=== PATIENT | female | born 1945 | race Caucasian/White ===

== ENCOUNTER 2016-09-25 14:33 | Outpatient (CLI) | payer MEDICARE, BC ==
[~2016-09-25] VITALS: Ht 172.7 cm; Wt 69.5 kg
[2016-09-25 16:00] VITALS: BP 144/55; PULSE 59; TEMP 97.5
[2016-09-25] MEDS ORDERED: ZOLOFT 100MG100 MG PO (16:20)
[2016-09-25] MEDS ORDERED: PRINIVIL5 MG PO (16:20)
[2016-09-25] MEDS ORDERED: VITAMIN D 1001000 IU PO (16:22)
[2016-09-25] MEDS ORDERED: MASON NATURAL1200 MG PO (16:22)
[2016-09-25] MEDS ORDERED: ZOCOR 20MG20 MG PO (16:24)
== END 2016-09-25 17:01 | disposition home or self-care (01) ==
LOC: EUO 14:33
DX: M81.0 Age-related osteoporosis without current pathological fracture (principal)
CPT/HCPCS: J3489

== ENCOUNTER 2016-10-09 07:55 | Day surgery (SDC) | payer MEDICARE, BC ==
[~2016-10-09] VITALS: Ht 170.2 cm; Wt 67.5 kg
[~2016-10-09 07:55] MED LIST: MASON NATURAL1200 MG PO; PRINIVIL5 MG PO; VITAMIN D 1001000 IU PO; ZOCOR 20MG20 MG PO; ZOLOFT 100MG100 MG PO
[2016-10-09 08:39] VITALS: BP 114/69; PULSE 61; TEMP 97.5
[2016-10-09 09:58] VITALS: BP 123/62; PULSE 64; TEMP 97.6
[2016-10-09 10:15] VITALS: BP 114/50; PULSE 62
[2016-10-09 10:30] VITALS: BP 112/49; PULSE 63
[2016-10-09 11:16] VITALS: BP 96/56; PULSE 62
== END 2016-10-09 10:51 | disposition home or self-care (01) ==
LOC: SDCO 07:55
DX: Z12.11 Encounter for screening for malignant neoplasm of colon (principal); K57.30 Diverticulosis of large intestine without perforation or abscess without bleeding; I10 Essential (primary) hypertension; M85.80 Other specified disorders of bone density and structure, unspecified site
CPT/HCPCS: OP; J7030

== ENCOUNTER → 2018-01-21 | Outpatient (CLI) | payer MEDICARE, BC | LOC: MC.RAD 08:39 | DX: Z12.31 Encounter for screening mammogram for malignant neoplasm of breast (principal) ==

== ENCOUNTER → 2019-03-30 | Outpatient (CLI) | payer MEDICARE, BC | LOC: MC.RAD 13:55 | DX: Z12.31 Encounter for screening mammogram for malignant neoplasm of breast (principal) ==

== ENCOUNTER 2023-08-31 07:31 | Inpatient (IN) | payer MEDICARE, BC ==
[~2023-08-31] VITALS: Ht 165.1 cm; Wt 68.1 kg
[2023-08-31] VITALS (16 sets, daily range): BP systolic 113–165; BP diastolic 54–78; PULSE 60–90; TEMP 97–98.4
[2023-08-31] MEDS ORDERED: Ketorolac 15 MG/ML VIAL IV ONE (08:00)
[2023-08-31] MEDS ORDERED: NS 1,000 ML IV ONE (08:00)
[2023-08-31] MEDS ORDERED: fentaNYL 50 MCG/ML 2 ML VIAL IV ONE (08:00)
[2023-08-31 08:35] LABS: BASO # 0.1 K/mm3 (0.0-0.2); BASO % 0.3 % (0.0-2.0); EOS % 0.2 % (0.0-4.0); GRAN # 15.9 K/mm3 (1.4-6.5); HEMATOCRIT 39.1 % (37.0-47.0); HEMOGLOBIN 12.8 g/dl (12.5-16.0); LYMPH # 0.9 K/mm3 (1.2-3.4); MEAN CELL VOLUME 93 fl (80.0-100.0); MEAN CORPUSCULAR HEMOGLOBIN 31 pg (27-31); MEAN CORPUSCULAR HGB CONC 33 g/dl (33.0-37.0); MEAN PLATELET VOLUME 10.5 fl (7.4-10.4); MONO # 1.1 K/mm3 (0.1-0.6); MONO % 5.9 % (1.7-9.3); PLATELET COUNT 243 K/mm3 (130-400); RED BLOOD COUNT 4.19 M/mm3 (4.10-5.30); REDCELL DISTRIBUTION WIDTH-CV 13.4 % (11.5-14.5)
[2023-08-31 08:56] LABS: ALBUMIN 3.3 g/dL (3.4-4.8); BILIRUBIN,TOTAL 0.7 mg/dL (0.2-1.2); CALCIUM 10.3 mg/dL (8.4-10.2); CREATININE, serum 1.06 mg/dL (0.57-1.11); POTASSIUM 4.1 mEq/L (3.5-4.5); TOTAL PROTEIN 6.9 g/dl (6.2-8.1)
[2023-08-31 08:57] LABS: C-REACTIVE PROTEIN 38.62 mg/dL (0.00-0.50)
[2023-08-31 09:04] LABS: COLLECTION METHOD CLEAN CATCH
[2023-08-31 10:01] LABS: URINE COLOR YELLOW (YELLOW)
[2023-08-31 10:02] LABS: PH 5.5 (5.0-8.5); URINE APPEARANCE Hazy (CLEAR/HAZY); URINE GLUCOSE NEGATIVE (NEGATIVE); URINE PROTEIN(semi-quant) 1+ (NEGATIVE)
[2023-08-31 10:03] LABS: URINE BLOOD TRACE-INTACT (NEGATIVE); URINE KETONE 1+ (NEGATIVE); URINE NITRATE POSITIVE (NEGATIVE); URINE UROBILINOGEN 0.2 E.U/dL (0.2-1.0)
[2023-08-31 10:06] LABS: MUCOUS PRESENT (NOT PRESENT); URINE BACTERIA MANY /hpf (NONE SEEN); URINE RBC 0-2 /hpf (0-2); URINE WBC 0-2 /hpf (0-2)
[2023-08-31] MEDS ORDERED: CIPRO 500MG TA500 MG PO (10:25)
[2023-08-31] MEDS ORDERED: FLAGYL500 MG PO (10:26)
[2023-08-31] MEDS ORDERED: LIPITOR 40MG TA40 MG PO (10:26)
--- NOTE | 2023-08-31 12:00 | NUR ---
PATIENT ARRIVED FROM THE ER AWAKE ALERT AND ORIENTED. BP SLIGHTLY ELEVATED, PATIENT APPEARS STABLE AT THIS TIME. CALL LIGHT WTIHIN REACH. PATIENT AWARE OF NPO STATUS AND SURGERY CONSULT. PATIENTS AT BEDSIDE. PATIENT DENIES ANY NEEDS OR COMPLAINTS AT THIS TIME.
--- NOTE | 2023-08-31 12:42 | NUR ---
Data: Farm Demonstrator visit attempted during Farm Demonstrator rounds. Patient was sleeping. Assessment: None. Patient was sleeping. Plan of Care: Chaplains will remain available as needed/requested while Patient is admitted to this hospital.
[2023-08-31] MEDS ORDERED: Morphine 4 MG/ML VIAL IV PRN (13:00)
[2023-08-31] MEDS ORDERED: NS 1,000 ML IV SCH (13:00)
[2023-08-31] MEDS ORDERED: Ondansetron 4 MG/2 ML VIAL IV PRN ×2 (13:00→14:30)
[2023-08-31] MEDS ORDERED: Meropenem 500 MG in Water For Injection,Sterile 10 ML IV SCH (13:00)
[2023-08-31] MEDS ORDERED: Acetaminophen 500 MG TAB PO PRN (13:00)
--- NOTE | 2023-08-31 13:35 | NUR ---
ANIYA CONSENT FOR SURGERY SIGNED. PARCEL POST DELIVERY AWARE OF ANNIKA MAR CALLED DOWN TO OR. PATIENT DENIES ANY NEEDS OR COMPLAINTS AT THIS TIME. IV ANT GIVEN (SEE EMAR) AND IVF INFUSING PER ORDER.
[2023-08-31] MEDS ORDERED: Meperidine 50 MG/ML 1 ML VIAL IV PRN (14:30)
[2023-08-31] MEDS ORDERED: HYDROmorphone 1 MG/1 ML SYRINGE [PACU/SDC ONLY] IV PRN (14:30)
[2023-08-31] MEDS ORDERED: fentaNYL 50 MCG/ML 1 ML SYRINGE/VIAL [PACU/SDC ONLY] IV PRN (14:30)
[2023-08-31] MEDS ORDERED: hydrALAZINE 20 MG/ML 1 ML VIAL IV PRN (14:30)
[2023-08-31] MEDS ORDERED: BUPivacaine PF 0.5% w EPI (1:200,000) 10 ML VIAL SQ ONE ×2 (14:38)
[2023-08-31] MEDS ORDERED: LR 1,000 ML IV SCH (16:00)
--- NOTE | 2023-08-31 16:50 | NUR ---
PATIENT TAKEN TO SURGERY VIA BED BY PACU NURSE, PATIENTS STAYED WITH PATIENT. PATIENT LEFT THE UNIT AWAKE ALERT AND IN STABLE CONDITION.
[2023-08-31] MEDS ORDERED: Rocuronium 50 MG/5 ML Multi-Dose VIAL ONE (17:45)
[2023-08-31] MEDS ORDERED: Lidocaine PF 2% (20 MG/ML) 5 ML VIAL ONE (17:45)
[2023-08-31] MEDS ORDERED: Ondansetron 4 MG/2 ML VIAL ONE (17:45)
[2023-08-31] MEDS ORDERED: fentaNYL 50 MCG/ML 5 ML VIAL ONE (17:46)
[2023-08-31] MEDS ORDERED: Iohexol 300 - 100 ML VIAL IV ONE (18:01)
[2023-08-31] MEDS ORDERED: NS 100 ML IV.SOLN. IY SCH (18:03)
[2023-08-31] MEDS ORDERED: fentaNYL 50 MCG/ML 2 ML VIAL ONE (19:06)
[2023-08-31] MEDS ORDERED: Metoprolol Tartrate 5 MG/5 ML VIAL IV ONE (19:37)
[2023-08-31 19:51] LABS: HEMATOCRIT 37.3 % (37.0-47.0); HEMOGLOBIN 11.8 g/dl (12.5-16.0); MEAN CELL VOLUME 93 fl (80.0-100.0); MEAN CORPUSCULAR HEMOGLOBIN 29 pg (27-31); MEAN CORPUSCULAR HGB CONC 32 g/dl (33.0-37.0); MEAN PLATELET VOLUME 10.4 fl (7.4-10.4); PLATELET COUNT 233 K/mm3 (130-400); RED BLOOD COUNT 4.01 M/mm3 (4.10-5.30); REDCELL DISTRIBUTION WIDTH-CV 13.5 % (11.5-14.5)
[2023-08-31 20:05] LABS: CALCIUM 9.6 mg/dL (8.4-10.2); CREATININE, serum 0.86 mg/dL (0.57-1.11); MAGNESIUM 1.6 mg/dL (1.6-2.6); POTASSIUM 4.2 mEq/L (3.5-4.5)
--- NOTE | 2023-08-31 20:10 | NUR ---
RECIEVED REPORT FROM PACU NURSE. PT NSR WITH PVC'S. PER PACU NURSE HAD LABS DRAWN THAT WERE ORDERED PER BAUTISTA REESE. ONCE PT ARRIVED TO UNIT SHE WAS SEEN BY PROVIDER AND ACESSED, VS WNL EKG DONE. PAIN RATED 4/10, TOLERATING SIPS OF WATER.
[2023-08-31 20:23] LABS: BAND 1 % (0-10); LYMPHOCYTE 5 % (20.0-51.0); NEUTROPHILS 92 % (42.0-75.2)
[2023-08-31 20:26] LABS: HYPOCHROMIA 2+; PLATELET ESTIMATE NORMAL (NORMAL)
[2023-09-01] VITALS (13 sets, daily range): BP systolic 110–169; BP diastolic 54–74; PULSE 70–90; TEMP 97.7–99.2
--- NOTE | 2023-09-01 03:50 | NUR ---
PT DOING WELL OVERNIGHT, REMAINS ALERT AND ORIENTED X3. PAIN RATED 6-8/10 IN LAPRROSCOPIC SITES. VS WNL HAS BEEN TOLERATING CLEARS AND HAS VOIDED. CALL LIGHT WITHIN REACH.
[2023-09-01 07:04] LABS: BASO % 0.2 % (0.0-2.0); EOS % 0.2 % (0.0-4.0); GRAN # 10.8 K/mm3 (1.4-6.5); GRAN % 88.4 % (42.2-75.2); HEMOGLOBIN 11.1 g/dl (12.5-16.0); LYMPH # 0.8 K/mm3 (1.2-3.4); LYMPH % 6.6 % (20.0-51.0); MEAN CELL VOLUME 93 fl (80.0-100.0); MEAN CORPUSCULAR HEMOGLOBIN 30 pg (27-31); MEAN CORPUSCULAR HGB CONC 32 g/dl (33.0-37.0); MEAN PLATELET VOLUME 10.4 fl (7.4-10.4); MONO # 0.5 K/mm3 (0.1-0.6); MONO % 4.2 % (1.7-9.3); PLATELET COUNT 254 K/mm3 (130-400); RED BLOOD COUNT 3.74 M/mm3 (4.10-5.30); REDCELL DISTRIBUTION WIDTH-CV 13.6 % (11.5-14.5)
[2023-09-01 07:11] LABS: HEMATOCRIT 34.7 % (37.0-47.0)
[2023-09-01 07:24] LABS: CALCIUM 8.9 mg/dL (8.4-10.2); CREATININE, serum 0.84 mg/dL (0.57-1.11); MAGNESIUM 1.6 mg/dL (1.6-2.6); POTASSIUM 4.1 mEq/L (3.5-4.5)
[2023-09-01] MEDS ORDERED: Sertraline 100 MG TAB PO SCH (09:00)
--- NOTE | 2023-09-01 11:02 | NUR ---
SW met with patient to complete intake & discuss discharge planning. Patient shared that she resides in her home with her in [place] ([place]clain [phone] cell. Patient has DPOA on file. Patient's PCP is Dr Rutledge and pharmacy of choice is [facility]. Patient reports no current DMEs and is independent with ADLs. Patient is anticipating to discharge to her home w/spouse at this time.
--- NOTE | 2023-09-01 13:57 | NUR ---
IVF DECREASED TO 75CC/HR PER MD ORDER. SEE EMAR
[2023-09-01] MEDS ORDERED: Mouth Moisturizer Spray 30 ML BOTTLE PO PRN (14:00)
[2023-09-01] MEDS ORDERED: Lisinopril 5 MG TAB PO SCH (16:51)
[2023-09-02] VITALS (14 sets, daily range): BP systolic 111–169; BP diastolic 56–84; PULSE 65–84; TEMP 97.5–98.4
--- NOTE | 2023-09-02 07:30 | NUR ---
PATIENT RESTING UP IN BEDSIDE CHAIR DURING SHIFT REPORT. NO COMPLAINTS OF PAIN OR NAUSEA. IV FLUIDS INFUSING VIA PUMP INTO RIGHT AC IV. VSS ON TELE. ALREADY ROUNDED, SEE NOTES. TOLERATING LOW FIBER DIET. PASSING GAS. NO BM YET. HEAD TO TOE ASSESSMENT WNL. CALL LIGHT IN REACH.
[2023-09-02 08:02] LABS: BASO % 0.3 % (0.0-2.0); EOS # 0.2 K/mm3 (0.0-0.7); EOS % 1.6 % (0.0-4.0); GRAN % 86.1 % (42.2-75.2); HEMOGLOBIN 11.1 g/dl (12.5-16.0); LYMPH # 0.6 K/mm3 (1.2-3.4); LYMPH % 5.5 % (20.0-51.0); MEAN CELL VOLUME 93 fl (80.0-100.0); MEAN CORPUSCULAR HEMOGLOBIN 31 pg (27-31); MEAN CORPUSCULAR HGB CONC 33 g/dl (33.0-37.0); MEAN PLATELET VOLUME 10.6 fl (7.4-10.4); MONO # 0.7 K/mm3 (0.1-0.6); MONO % 5.9 % (1.7-9.3); PLATELET COUNT 208 K/mm3 (130-400); RED BLOOD COUNT 3.63 M/mm3 (4.10-5.30); REDCELL DISTRIBUTION WIDTH-CV 13.8 % (11.5-14.5)
[2023-09-02 08:16] LABS: CALCIUM 8.8 mg/dL (8.4-10.2); CREATININE, serum 0.73 mg/dL (0.57-1.11); POTASSIUM 3.8 mEq/L (3.5-4.5)
[2023-09-02 08:57] LABS: HEMATOCRIT 33.6 % (37.0-47.0)
--- NOTE | 2023-09-02 10:20 | NUR ---
PATIENT'S SON AT DESK REPORTING PATIENT'S JAMAAL DRAIN IS LEAKING ON THE FLOOR WHEN PATIENT WENT TO GET UP OUT OF THE RECLINER. UPON ASSESSING, THE PATIENT GOT THE JAMAAL DRAIN CAUGHT IN THE LEG OF THE BEDSIDE CHAIR WHEN SHE PUT THE FOOT REST DOWN TO GET UP AND THE JAMAAL BULB CAMP OFF. PATIENT CLEANED UP, REAPPLIED JAMAAL BULB AND CHANGED DSG SITE WITH NEW GAUZE & HYPAFIX TAPE. SUTURE TO JAMAAL SITE INTACT. JAMAAL BACK TO BULB COMPRESSION. PROVIDER NOTIFIED, NO NEW ORDERS AT THIS TIME.
--- NOTE | 2023-09-02 14:26 | NUR ---
Outreach Specialist contacted Hospitalist to request PT/OT evaluation.
[2023-09-02] MEDS ORDERED: Polyethylene Glycol 3350 17 GM PDS PO SCH (20:19)
--- NOTE | 2023-09-02 23:46 | NUR ---
PT lying in bed, alert and oriented x4. denies chest pain and shortness of breath. reports unable to have BM since 2020- Dr. Kirkland notfied, new orders placed and initiated. IV to RAC is patent, site CDI. ambulates with steady gait. x2 lap sites with bandaids and JAMAAL drain with gauze dressing, all sites CDI. pt has no further needs, questions, or concerns at this time. call light within reach. will continue to monitor.
[2023-09-03] VITALS (7 sets, daily range): BP systolic 164–175; BP diastolic 58–73; PULSE 68–82; TEMP 97.7–98.5
[2023-09-03] MEDS ORDERED: hydrALAZINE 20 MG/ML 1 ML VIAL IV PRN (05:15)
[2023-09-03 06:34] LABS: BASO % 0.2 % (0.0-2.0); EOS # 0.2 K/mm3 (0.0-0.7); EOS % 1.7 % (0.0-4.0); GRAN # 9.9 K/mm3 (1.4-6.5); GRAN % 86.4 % (42.2-75.2); HEMOGLOBIN 11.2 g/dl (12.5-16.0); LYMPH # 0.6 K/mm3 (1.2-3.4); LYMPH % 5.6 % (20.0-51.0); MEAN CELL VOLUME 89 fl (80.0-100.0); MEAN CORPUSCULAR HEMOGLOBIN 30 pg (27-31); MEAN CORPUSCULAR HGB CONC 34 g/dl (33.0-37.0); MEAN PLATELET VOLUME 10.3 fl (7.4-10.4); MONO # 0.6 K/mm3 (0.1-0.6); MONO % 5.6 % (1.7-9.3); PLATELET COUNT 284 K/mm3 (130-400); RED BLOOD COUNT 3.72 M/mm3 (4.10-5.30); REDCELL DISTRIBUTION WIDTH-CV 13.4 % (11.5-14.5)
[2023-09-03 06:40] LABS: HEMATOCRIT 33.2 % (37.0-47.0)
[2023-09-03 07:04] LABS: CALCIUM 9.1 mg/dL (8.4-10.2); CREATININE, serum 0.66 mg/dL (0.57-1.11); POTASSIUM 3.3 mEq/L (3.5-4.5)
--- NOTE | 2023-09-03 08:20 | NUR ---
patient alert and orientex x4. on room air. sitting in bed getting ready for breakfast. patient reports pain to left lower quadrant when pressed and also with movement does not want medication for it. patient has 2 lap sites C/D/I. and reports a bowel movement last night. refused colace and miralax this morning. Patient has a earl drain to right lower quadrant draining pink drainage no bright red drainage. Patient call light within reach. bed at lowest position.
[2023-09-03] MEDS ORDERED: Lisinopril 10 MG TAB PO SCH (09:00)
[2023-09-03] MEDS ORDERED: PRINIVIL10 MG PO (10:17)
[2023-09-03] MEDS ORDERED: CLEOCIN HCL300 MG PO (10:18)
--- NOTE | 2023-09-03 10:57 | NUR ---
Bleach Boiler Packer reviewed PT/OT notes which recommend home. SW was notified by Hospitalist that patient is going to be discharged today. SW met with patient to present and review IM form. Patient verbalized understanding and provided signature. SW placed form in chart and provided copy to patient. Discharge Plan: Home
--- NOTE | 2023-09-03 13:05 | NUR ---
patient discharge instructions given. Patient JAMAAL drain removed by dr. kimble.- per patient report. Patient discharge concerns were answered. Patient IV removed and telemetry discontinued. Patient provided with low fiber diet educational material added to previous educational material given. patient escorted out of unit by patient health care coach.
== END 2023-09-03 13:10 | disposition home or self-care (01) | DRG 356 ==
LOC: COL.ER 07:31 → MEDICAL 10:43
PROVIDERS: Emergency Medicine; Internal Medicine; Surgery; ADMIT Internal Medicine
PROC: 0W9G40Z Drainage of Peritoneal Cavity with Drainage Device, Percutaneous Endoscopic Approach (ICD-10-PCS; principal; 2023-08-31 18:00)
DX: K57.20 Diverticulitis of large intestine with perforation and abscess without bleeding (principal); K65.1 Peritoneal abscess; J98.11 Atelectasis; F32.A Depression, unspecified; I45.10 Unspecified right bundle-branch block; I10 Essential (primary) hypertension; E78.5 Hyperlipidemia, unspecified; K58.9 Irritable bowel syndrome, unspecified; Z90.89 Acquired absence of other organs; Z90.710 Acquired absence of both cervix and uterus; Z79.899 Other long term (current) drug therapy; Z88.0 Allergy status to penicillin; Z88.2 Allergy status to sulfonamides; Z88.8 Allergy status to other drugs, medicaments and biological substances; Z23 Encounter for immunization
CPT/HCPCS: J0360; J1885; J2185; J2270; J2405; J2704; J3010; J7030; Q9967